=== PATIENT | female | born 2000 | race Two or more races ===

== ENCOUNTER 2025-05-04 15:24 | Outpatient (CLI) | payer OTHER | END 2025-05-04 15:29 | disposition home or self-care (01) | LOC: PRENATAL 15:24 | PROVIDERS: ATTEND Obstetrics & Gynecology Maternal & Fetal Medicine | DX: O44.00 Complete placenta previa NOS or without hemorrhage, unspecified trimester (principal); Z36.0 Encounter for antenatal screening for chromosomal anomalies; Z3A.23 23 weeks gestation of pregnancy ==

== ENCOUNTER 2025-07-05 15:24 | Outpatient (CLI) | payer OTHER | END 2025-07-05 15:25 | disposition home or self-care (01) | LOC: PRENATAL 15:24 | PROVIDERS: ATTEND Obstetrics & Gynecology Maternal & Fetal Medicine | DX: O26.849 Uterine size-date discrepancy, unspecified trimester (principal); O36.8130 Decreased fetal movements, third trimester, not applicable or unspecified; Z3A.33 33 weeks gestation of pregnancy ==

== ENCOUNTER 2025-08-21 14:15 | Inpatient (IN) | payer OTHER ==
[~2025-08-21] VITALS: Ht 149.9 cm; Wt 66.2 kg
[2025-08-28 07:44] VITALS: BP 104/69
[2025-08-28] MEDS ORDERED: PRENATAL TABLE1 EAC4 PO (08:26)
[2025-08-28] MEDS ORDERED: VALTREX1000 MG PO (08:26)
[2025-08-28 08:29] LABS: BASO % 0.3 % (0.1-1.2); EOS # 0.17 (0.04-0.54); EOS % 2.3 % (0.7-7.0); LYMPH # 1.72 (1.18-3.74); LYMPH % 23.4 % (19.3-53.1); MONO # 0.66 (0.24-0.82); MONO % 9.0 % (4.7-12.5); NEUT # 4.76 (1.56-6.13); NEUT % 64.6 % (34.0-71.1); RED CELL DISTRIBUTION WIDTH 13.3 % (11.6-14.4)
[2025-08-28 08:49] LABS: URINE APPEARANCE Clear; URINE BILIRRUBIN Negative (NEGATIVE); URINE BLOOD Negative; URINE COLOR Yellow; URINE GLUCOSE Negative (NEGATIVE); URINE KETONE Negative (NEGATIVE); URINE LEUKOCYTE Negative; URINE NITRATE Negative; URINE PROTEIN Negative (NEGATIVE); URINE UROBILINOGEN 0.2 E.U./dl
[2025-08-28 08:58] LABS: INR < 0.93
[2025-08-28] MEDS ORDERED: AMPICILLIN SODIUM 2,000 MG VIAL IV ONE (09:00)
[2025-08-28] MEDS ORDERED: MISOPROSTOL 25 MCG/4 ML GEL.W.APPL VAG ONE (09:00)
[2025-08-28 09:01] LABS: URINE BACTERIA 26.3 uL (0.0-1933); URINE EPITHELIAL CELLS 1.5 uL (0.0-38.8); URINE WBC 2.6 uL (0.0-23.2)
[2025-08-28 09:06] LABS: URINE CAST 0.00 uL (0.0-1.40); URINE RBC 0.2 uL (0.0-20.8)
[2025-08-28] MEDS ORDERED: RINGERS SOLUTION,LACTATED 1,000 ML IV SCH (09:15)
[2025-08-28] MEDS ORDERED: OXYTOCIN 500 ML IV SCH (10:00)
[2025-08-28] MEDS ORDERED: MORPHINE SULFATE 4 MG/ML CARTRIDGE IV ONE (10:00)
[2025-08-28 12:18] VITALS: BP 100/71; O2SAT 100
[2025-08-28] MEDS ORDERED: AMPICILLIN SODIUM 1,000 MG VIAL IV SCH (13:00)
[2025-08-28 13:43] VITALS: BP 109/69
[2025-08-28 15:30] VITALS: BP 120/77
[2025-08-28] MEDS ORDERED: OXYTOCIN 10 UNITS/ML VIAL ONE (19:10)
[2025-08-28] MEDS ORDERED: CEFAZOLIN SODIUM 1,000 MG VIAL ONE (19:10)
[2025-08-28] MEDS ORDERED: ERYTHROMYCIN BASE OPHT 1GM EACH TUBE OP ONE (19:11)
[2025-08-28] MEDS ORDERED: MORPHINE SULFATE 4 MG/ML CARTRIDGE IV SCH (21:00)
[2025-08-28 22:48] VITALS: BP 122/81
[2025-08-29 00:55] VITALS: BP 120/81
[2025-08-29] MEDS ORDERED: KETOROLAC TROMETHAMINE 60 MG VIAL IM ONE (03:00)
[2025-08-29] MEDS ORDERED: OxyCODONE HCL 5 MG TABLET (ROXICODONE) PO SCH (05:00)
[2025-08-29 06:57] LABS: BASO % 0.3 % (0.1-1.2); EOS # 0.08 (0.04-0.54); EOS % 0.7 % (0.7-7.0); LYMPH # 2.20 (1.18-3.74); LYMPH % 19.9 % (19.3-53.1); MONO # 0.56 (0.24-0.82); MONO % 5.1 % (4.7-12.5); NEUT # 8.16 (1.56-6.13); NEUT % 73.7 % (34.0-71.1); RED CELL DISTRIBUTION WIDTH 13.4 % (11.6-14.4)
[2025-08-29 08:46] VITALS: BP 119/80
[2025-08-29] MEDS ORDERED: PNV,CALCIUM 72/IRON/FOLIC ACID 1 TAB TABLET PO SCH (09:00)
[2025-08-29] MEDS ORDERED: DOCUSATE SODIUM 100MG CAP PO SCH (09:00)
[2025-08-29] MEDS ORDERED: SIMETHICONE 125 MG CAPSULE PO SCH (09:00)
[2025-08-29 17:33] VITALS: BP 125/80
[2025-08-30 00:35] VITALS: BP 127/85
[2025-08-30 08:00] VITALS: BP 122/89
== END 2025-08-30 12:43 | disposition home or self-care (01) | DRG 788 ==
LOC: LDR 08-27 14:15 → OB/GYN 08-28 07:30 → LDR 08-28 07:30 → OB/GYN 08-28 21:13
PROVIDERS: ADMIT Obstetrics & Gynecology; ATTEND Obstetrics & Gynecology
PROC: 4A1HXCZ Monitoring of Products of Conception, Cardiac Rate, External Approach (ICD-10-PCS; 2025-08-28)
PROC: 10D00Z1 Extraction of Products of Conception, Low, Open Approach (ICD-10-PCS; principal; 2025-08-28 19:15)
DX: O82 Encounter for cesarean delivery without indication (principal); O33.8 Maternal care for disproportion of other origin; O62.1 Secondary uterine inertia; Z3A.40 40 weeks gestation of pregnancy; Z37.0 Single live birth